=== PATIENT | female | born 1940 | race Caucasian/White ===

== ENCOUNTER → 2019-04-30 10:26 | Outpatient (BNVA) | payer MEDICARE, SELFPAY | PROVIDERS: Visit Provider Nurse Practitioner Family | DX: Z00.00 Encounter for general adult medical examination without abnormal findings (principal); Z13.1 Encounter for screening for diabetes mellitus; E78.5 Hyperlipidemia, unspecified | CPT/HCPCS: 80048; 80061 ==

== ENCOUNTER → 2020-05-05 13:17 | Outpatient (BNVA) | payer MEDICARE, SELFPAY | PROVIDERS: PCP Nurse Practitioner Family; Visit Provider Nurse Practitioner Family | DX: I10 Essential (primary) hypertension (principal); E78.5 Hyperlipidemia, unspecified; Z00.00 Encounter for general adult medical examination without abnormal findings | CPT/HCPCS: 80053; 80061 ==

== ENCOUNTER → 2021-03-15 08:42 | Outpatient (BNVA) | payer MEDICARE, SELFPAY | PROVIDERS: PCP Nurse Practitioner Family; Visit Provider Nurse Practitioner Family | DX: I10 Essential (primary) hypertension (principal) | CPT/HCPCS: 80053 ==

== ENCOUNTER → 2021-04-19 09:29 | Outpatient (BNVA) | payer MEDICARE, SELFPAY | PROVIDERS: PCP Nurse Practitioner Family; Visit Provider Nurse Practitioner Family | DX: R53.1 Weakness (principal); R41.82 Altered mental status, unspecified; I10 Essential (primary) hypertension; F03.90 Unspecified dementia, unspecified severity, without behavioral disturbance, psychotic disturbance, mood disturbance, and anxiety | CPT/HCPCS: 80048; 85025 ==

== ENCOUNTER 2021-05-05 13:29 | Outpatient (CLI) | payer MEDICARE, SELFPAY ==
--- NOTE | 2021-05-05 13:40 | CT_ITS ---
WS: [id number] CT head wo/w con [id number] REASON FOR EXAM: R41.82 - Altered mental status, unspecified IV CONTRAST ADMINISTERED: 95 mL of Omnipaque 300 TOTAL EXAM DLP: 2325.[address] scans at [facility] use at least one of these dose optimization techniques: automat ed exposure control; mA and/or kV adjustment per patient size (includes targeted exams where dose is matched to clinical indication); or iterative reconstruction. FINDINGS: No midline shift or other significant mass effect. No findings of intra-axial or extra-axial hemorrhage. CSF spaces are of normal volume and configuration. Small focus of low attenuation in the right caudate nucleus. This is felt to represent an old infarct . There is inhomogeneous low-attenuation in the white matter compatible with small vessel chronic isc hemic demyelination. No other focal brain parenchymal abnormality identified. No abnormal contrast en hancement. The base of the skull is intact. There vertebral, carotid, and basilar arteries base the brain appear unremarkable. 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 No acute intracranial abnormality.
[2021-05-05] MEDS: iohexol 300 mg/mL 100 mL Btl IV (14:08)
== END 2021-05-05 13:30 | disposition home or self-care (01) ==
PROVIDERS: PCP Nurse Practitioner Family; Visit Provider Nurse Practitioner Family
DX: R41.82 Altered mental status, unspecified (principal)
CPT/HCPCS: 70470

== ENCOUNTER 2021-07-09 09:22 | Emergency (ER) | payer MEDICARE, SELFPAY ==
--- NOTE | 2021-07-09 09:26 | XRR_ITS ---
PROCEDURE INFORMATION: Exam: XR Chest Exam date and time: 07/09/2021 9:29 AM Age: 81 years old Clinical indication: Other: Weakness; Additional info: [place] TECHNIQUE: Imaging protocol: XR of the chest. Views: 1 view. Total images: 1 COMPARISON: No relevant prior studies available. FINDINGS: Lungs: Benign granulomatous disease of the lung is noted. Pleural spaces: Unremarkable. No pleural effusion. No pneumothorax. Heart/Mediastinum: Unremarkable. No cardiomegaly. Vasculature: Atherosclerosis is evident. Bones/joints: Unremarkable. XR/XR chest 1V portable [id number] IMPRESSION: No acute cardiopulmonary process.
--- NOTE | 2021-07-09 09:26 | CTR_ITS ---
PROCEDURE INFORMATION: Exam: CT Head Without Contrast Exam date and time: 07/09/2021 9:38 AM Age: 81 years old Clinical indication: Altered mental status/memory loss; Additional info: AMS TECHNIQUE: Imaging protocol: Computed tomography of the head without contrast. Total images: 1 Radiation optimization: All CT scans at this facility use at least one of these dose optimization techniques: automated exposure control; mA and/or kV adjustment per patient size (includes targeted exams where dose is matched to clinical indication); or iterative reconstruction. COMPARISON: CT head wo/w con [id number] 05/05/2021 2:04 PM RADIATION DOSE METRICS: Total DLP (mGy-cm): 778.52 FINDINGS: Brain: Global brain atrophy and chronic white matter ischemic changes are present. Chronic lacunar infarctions in the basal ganglia. Cerebral ventricles: Ventricles are appropriate in size for degree of atrophy. Paranasal sinuses: Visualized sinuses are unremarkable. No fluid levels. Mastoid air cells: Visualized mastoid air cells are well aerated. Orbital cavities: Senescent scleral calcification noted bilateral. Prior bilateral lens replacements noted. Bones/joints: Temporomandibular joint degeneration. Soft tissues: Unremarkable. CT/CT head wo con* [id number] IMPRESSION: No acute intracranial abnormality.
--- NOTE | 2021-07-09 09:27 | ECG_ITS ---
[facility] Test Date: 2021-07-09 Pat Name: Krissy Hager Department: Room: Gender: Female Assistant Mechanic: : 1940 Requested By: Remington Collado Order Number: [id number] Sherman MD: Wilber Putnam M.D. Measurements Intervals [place] Rate: 78 P: 15 MN: 181 QRS: 12 QRSD: 95 T: -11 QT: 361 QTc: 413 Interpretive Statements SINUS RHYTHM POSSIBLE ANTERIOR MYOCARDIAL INFARCTION , OF INDETERMINATE AGE [30 ms Q WAVE IN V3/V4, OR R < 0.2 mV IN V4] No previous ECG available for comparison Electronically Signed On 07-09-2021 12:59:12 CDT by Wilber Putanm M.D. [email or web address]
--- NOTE | 2021-07-09 09:29 | W.ED.AMS ---
HPI - Altered Mental Status General: Chief Complaint: Altered Mental Status Stated Complaint: AMS Time Seen by Provider: 07/09/21 09:23 Source: EMS Mode of arrival: EMS Limitations: no limitations History of Present Illness: 81-year-old female who has a history of a CVA this year she has [facility]. Per [facility] staff she went to bed normal last night at 9 PM and since being awake this morning she has been altered not following any commands not able to walk. Here she is able to follow 1 command and show me 2 fingers was not able to get her to answer any questions she will not move her extremity was able to lift her left hand slightly to show me the 2 fingers EMS states they could not get her to respond at all. Review of Systems General: Reports: ROS unobtainable due to mental status [facility] ED PFSH: Medical History BMI 21.0-21.9, adult Chronic GERD History of cervical cancer History of kidney stones History of migraine Hypertension Surgical History History of hysterectomy 1998 History of tubal ligation Family History Father Family history of heart attack Mother Hypertension Sister Cancer Social History Smoking and tobacco status: never smoked Second hand smoke exposure: No Smoking risk assessment/counseling performed?: No Alcohol intake: never Desire information about alcohol rehabilitation?: No Counseling given: No Desire information about substance/drug rehabilitation?: No Counseling given: No Adopted: No Caregiver/support person: No Lives independently: Yes Household members: none Housing: House Number of children: 2 service: No Current occupational status: retired History of recent travel: No Sexually active: No Current gender identity: Female Physical Exam Const: COMMON NORMALS: negative for patient oriented x3 EXAM LIMITATIONS: altered mental status GENERAL APPEARANCE: lethargic, ill appearing and frail appearing ORIENTATION/CONSCIOUSNESS: Yes lethargic HENMT: COMMON NORMALS: normocephalic and atraumatic HEAD & SCALP: normocephalic and atraumatic Eye: COMMON NORMALS: Equal, round and reactive pupils present PUPIL: Yes Equal, round and reactive pupils present Neck/C-Spine: COMMON NORMALS: full ROM and supple Chest: COMMONS NORMALS: normal inspection of the chest and normal palpation of entire chest wall Resp: COMMON NORMALS: normal respiratory effort, No retractions, No use of accessory muscles and clear to auscultation bilaterally AUSCULTATION: clear to auscultation bilaterally Cardio: COMMON NORMALS: regular rate and regular rhythm RATE: regular rate RHYTHM: regular rhythm GI: COMMON NORMALS: Normal to inspection, nondistended, normoactive bowel sounds present, Soft to palpation and non-tender PALPATION: Yes Soft to palpation : COMMON NORMALS: Yes no CVA tenderness BLADDER/KIDNEY EXAM: Yes no CVA tenderness Back/Pelvis: COMMON NORMALS: no CVA tenderness Extremity: COMMON NORMALS: normal to inspection Neuro: COMMON NORMALS: negative for patient oriented x3 SENSORIUM/ORIENTATION: Yes lethargic Psych: COMMON NORMALS: negative for mental status grossly normal Skin: COMMON NORMALS: no rashes or lesions noted GENERAL SKIN EXAM: no rashes or lesions noted Course Vital Signs: Vital signs: Vital Signs Temperature 96.1 F L 07/09/21 09:34 Pulse Rate 83 07/09/21 09:34 Respiratory Rate 16 07/09/21 09:34 Blood Pressure 114/77 07/09/21 09:34 Pulse Oximetry 98 07/09/21 09:34 MDM - Altered Mental Status Medical Decision Making Patient presents with an episode of altered mental status here she currently she is now awake and alert and at her baseline answering all my questions appropriately head CT blood works all normal she feels improved would like to go back to [facility] I feel she is stable for discharge back to the [facility] she is to follow-up with PCP and return if worsening. Lab Data : 07/09/21 10:17 07/09/21 10:17 Radiology Impressions Chest X-Ray 07/09/21 09:26 IMPRESSION: No acute cardiopulmonary process. Head CT 07/09/21 09:26 IMPRESSION: No acute intracranial abnormality. Laboratory Results WBC 5.4 10^3/uL (4.0-10.0) 07/09/21 10:17 RBC 4.15 10^6/uL (4.1-5.3) 07/09/21 10:17 Hgb 12.7 g/dL (11.5-15.3) 07/09/21 10:17 Hct 37.7 % (37.0-47.0) 07/09/21 10:17 MCV 90.8 fl (81-99) 07/09/21 10:17 MCH 30.6 pg (28.0-34.0) 07/09/21 10:17 MCHC 33.7 g/dL (30.0-36.0) 07/09/21 10:17 RDW 13.4 % (12.1-15.1) 07/09/21 10:17 Plt Count 170 10^3/cmm (130-400) 07/09/21 10:17 MPV 11.7 fL (7.4-10.4) H 07/09/21 10:17 Neut % (Auto) 70.7 % 07/09/21 10:17 Lymph % (Auto) 20.4 % 07/09/21 10:17 [place] % (Auto) 7.5 % 07/09/21 10:17 Eos % (Auto) 0.4 % 07/09/21 10:17 Baso % (Auto) 0.6 % 07/09/21 10:17 Neut # (Auto) 3.79 10^3/uL (1.8-7.7) 07/09/21 10:17 Lymph # (Auto) 1.1 10^3/uL (0.8-4.8) 07/09/21 10:17 [place] # (Auto) 0.4 10^3/uL (0.2-0.9) 07/09/21 10:17 Eos # (Auto) 0.0 10^3/uL (0.0-0.8) 07/09/21 10:17 Baso # (Auto) 0.0 10^3/uL (0.0-0.1) 07/09/21 10:17 Nucleated RBC % (auto) 0 % 07/09/21 10:17 Nucleated RBCs # 0.0 /100WBC 07/09/21 10:17 PT 13.10 SECONDS (12.1-14.9) 07/09/21 10:17 INR 0.96 (0.8-1.2) 07/09/21 10:17 Specimen Type Arterial 07/09/21 09:43 Sample Site Brachial, left 07/09/21 09:43 ABG pH 7.47 (7.35-7.45) H 07/09/21 09:43 ABG pCO2 41.3 mmHg (35-45) 07/09/21 09:43 ABG pO2 114.0 mmHg (80.0-100.0) H 07/09/21 09:43 ABG HCO3 29.7 mmol/L (22-26) H 07/09/21 09:43 ABG Base Excess 5.5 mmol/L (-2.0-2.0) H 07/09/21 09:43 Lloyd Test Pos 07/09/21 09:43 Hematocrit 40.8 % (37-47) 07/09/21 09:43 O2 Delivery Device Nc 07/09/21 09:43 O2 Liters/Min 2.0 % 07/09/21 09:43 FiO2 28.0 % 07/09/21 09:43 Exchange Specialist ID Cak 07/09/21 09:43 Sodium 139 mmol/L (136-145) 07/09/21 10:17 Potassium 3.3 mmol/L (3.5-5.1) L 07/09/21 10:17 Chloride 101 mmol/L (98-107) 07/09/21 10:17 Carbon Dioxide 26 mmol/L (22-29) 07/09/21 10:17 Anion Gap 15.3 (5-19) 07/09/21 10:17 BUN 21 mg/dL (8-23) 07/09/21 10:17 Creatinine 0.6 mg/dL (0.5-0.9) 07/09/21 10:17 GFR Calculation Not Reportable 07/09/21 10:17 Glucose 86 mg/dL (65-115) 07/09/21 10:17 Calculated Osmolality 290 mOsm/kg (285-295) 07/09/21 10:17 Calcium 9.3 mg/dL (8.5-10.5) 07/09/21 10:17 Total Bilirubin 1.0 mg/dL (0.15-1.2) 07/09/21 10:17 AST 13 U/L (0-32) 07/09/21 10:17 ALT 8 U/L (0-33) 07/09/21 10:17 Alkaline Phosphatase 77 IU/L (35-105) 07/09/21 10:17 Total Protein 6.1 g/dL (6.6-8.7) L 07/09/21 10:17 Albumin 3.8 g/dL (3.5-5.2) 07/09/21 10:17 Globulin 2.3 g/dL (1.3-4.6) 07/09/21 10:17 TSH 0.20 uIU/mL (0.27-4.20) L 07/09/21 10:17 Urine Color Yellow (Yellow) 07/09/21 10:06 Urine Appearance Clear (CLEAR) 07/09/21 10:06 Urine pH 6 (5-7) 07/09/21 10:06 Ur Specific [place] 1.030 (1.005-1.030) 07/09/21 10:06 Urine Protein Neg (Negative) 07/09/21 10:06 Urine Glucose (UA) Norm (Normal) 07/09/21 10:06 Urine Ketones Negative (Negative) 07/09/21 10:06 Urine Blood Neg (Negative) 07/09/21 10:06 Urine Nitrate Negative (Negative) 07/09/21 10:06 Urine Bilirubin Neg (Negative) 07/09/21 10:06 Urine Urobilinogen Norm mg/dL (Negative) 07/09/21 10:06 Ur Leukocyte Esterase Negative (Negative) 07/09/21 10:06 EKG Data EKG 1: I personally reviewed and interpreted this EKG as follows: EKG interpretation date: 07/09/21 EKG interpretation time: 09:55 Interpretation: nsr hr [address] or t wave abnormalities qrs 95 qtc 394 Discharge Plan Discharge Patient Disposition: Home Clinical Impression: Altered mental status Qualifiers: Altered mental status type: unspecified Qualified Code(s): R41.82 - Altered mental status, unspecified Condition: Stable Prescriptions: No Action aspirin 81 mg tablet,delayed release (DR/EC) 81 mg PO DAILY 0RF metoprolol tartrate 25 mg tablet 50 mg PO DAILY 0RF amlodipine 10 mg tablet 10 mg PO DAILY 0RF docusate sodium [Colace] 100 mg capsule 100 mg PO DAILY 0RF polyethylene glycol 3350 [Miralax] 17 gram/dose powder 17 g PO DAILY PRN (Reason: constipation) 0RF atorvastatin 40 mg tablet 40 mg PO .at hs 0RF duloxetine [Cymbalta] 30 mg capsule,delayed release(DR/EC) 30 mg PO DAILY Qty: 30 0RF omega 9-xso-fjo-fish oil [Fish Oil] 1,000 mg (120 mg-180 mg) capsule 1 cap PO BID 0RF vitamin E (dl, acetate) 180 mg (400 unit) capsule 400 unit PO DAILY 0RF cholecalciferol (vitamin D3) 25 mcg (1,000 unit) capsule 25 mcg PO DAILY 0RF ferrous sulfate [FeroSul] 325 mg (65 mg iron) tablet 325 mg PO DAILY 0RF potassium chloride 10 mEq capsule, extended release 10 meq PO DAILY Qty: 90 1RF Discharge Orders: Discharge ED (Routine); Ordered 07/09/21 Ordered By: Remington Collado Referrals: Sterling Madrid MD [Primary Care Provider] - 1-3 days Discharge Diet: Advance as tolerated Discharge Activity: Resume usual activity Patient Instructions: Altered Mental Status (ED) Coding Level of Care Code ED [employer] Consultant for Wilmer Fwd Exam Comprehensive
[2021-07-09 09:34] VITALS: BP 114/77; PULSE 83; RESP 16; TEMP 35.6; O2SAT 98; BMI 18.3
[2021-07-09 09:54] LABS: ABG PCO2 41.3 mmHg (35-45); ABG PH Result 7.47 (7.35-7.45); Arterial Blood Gas Hematocrit 40.8 % (37-47); Base Excess ABG 5.5 mmol/L (-2.0-2.0); Blood Gas Allen Test Pos; Blood Gas Operator Identificat CAK; Blood Gas Sample Site Brachial, left; Blood Gas Sample Type Arterial; HCO3 ABG 29.7 mmol/L (22-26); Oxygen Device NC
--- NOTE | 2021-07-09 10:26 | PC.NURSE ---
IN AND OUT CATH PERFORMED ASSISTED BY Kibin. PT PLACED ON CONTINUOUS SPO2, NIBP, AND CM.
[2021-07-09 10:34] LABS: Basophils % 0.6 %; Eosinophils % 0.4 %; Hematocrit 37.7 % (37.0-47.0); Hemoglobin 12.7 g/dL (11.5-15.3); Lymphocytes # 1.1 10^3/uL (0.8-4.8); Lymphocytes % 20.4 %; Mean Corpuscular HGB Conc 33.7 g/dL (30.0-36.0); Mean Corpuscular Hemoglobin 30.6 pg (28.0-34.0); Mean Corpuscular Volume 90.8 fl (81-99); Mean Platelet Volume 11.7 fL (7.4-10.4); Monocytes # 0.4 10^3/uL (0.2-0.9); Monocytes % 7.5 %; Neutrophils # 3.79 10^3/uL (1.8-7.7); Neutrophils % 70.7 %; Nucleated Red Blood Cells % 0 %; Platelet Count 170 10^3/cmm (130-400); Red Blood Count 4.15 10^6/uL (4.1-5.3); Red Cell Distribution Width 13.4 % (12.1-15.1); White Blood Count 5.4 10^3/uL (4.0-10.0)
[2021-07-09 10:39] LABS: Add Urine Microscopic? NO; Charge for UA Resulting for Rev
[2021-07-09 10:41] LABS: INR 0.96 (0.8-1.2)
[2021-07-09 10:49] LABS: Bilirubin Urine Neg (Negative); Blood Urine Neg (Negative); Glucose Urine UA Norm (Normal); Ketones Urine Negative (Negative); Leukocyte Esterase Urine Negative (Negative); Nitrate Urine Negative (Negative); Protein Urine Neg (Negative); Urine Appearance Clear (CLEAR); Urine Color Yellow (Yellow); Urobilinogen Urine Norm (Negative); pH Urine 6 (5-7)
[2021-07-09 10:58] LABS: Alanine Aminotransferase 8 U/L (0-33); Albumin Level 3.8 g/dL (3.5-5.2); Alkaline Phosphatase 77 IU/L (35-105); Anion Gap 15.3 (5-19); Aspartate Amino Transferase 13 U/L (0-32); Blood Urea Nitrogen 21 mg/dL (8-23); Calcium 9.3 mg/dL (8.5-10.5); Carbon Dioxide 26 mmol/L (22-29); Chloride 101 mmol/L (98-107); Globulin 2.3 g/dL (1.3-4.6); Glucose 86 mg/dL (65-115); Osmolality Calculated 290 mOsm/kg (285-295); Potassium 3.3 mmol/L (3.5-5.1); Sodium 139 mmol/L (136-145); Total Protein 6.1 g/dL (6.6-8.7)
--- NOTE | 2021-07-09 11:14 | PC.NURSE ---
REPORT GIVEN TO CARMINA CLARK.
== END 2021-07-09 13:48 | disposition home or self-care (01) ==
PROVIDERS: Emergency Provider Emergency Medicine; PCP Internal Medicine
DX: R41.82 Altered mental status, unspecified (principal); I10 Essential (primary) hypertension; K21.9 Gastro-esophageal reflux disease without esophagitis; Z79.82 Long term (current) use of aspirin
CPT/HCPCS: 36600; 70450; 71045; 80053; 81003; 82803; 84443; 85025; 85610; 93005; 99284

== ENCOUNTER 2021-07-18 09:12 | Emergency (ER) | payer MEDICARE, SELFPAY ==
[2021-07-18 09:14] VITALS: BP 135/74; PULSE 90; RESP 14; TEMP 36.7; O2SAT 97; BMI 22.0
--- NOTE | 2021-07-18 09:25 | XRR_ITS ---
PROCEDURE INFORMATION: Exam: XR Chest Exam date and time: 07/18/2021 9:33 AM Age: 81 years old Clinical indication: Other: Unresponsive; Additional info: AMS TECHNIQUE: Imaging protocol: XR of the chest. Views: 1 view. COMPARISON: CR (CHEST, ) 07/09/2021 9:29 AM FINDINGS: Lungs: There is no consolidation. Pleural spaces: There is no pleural effusion or pneumothorax. Heart/Mediastinum: There is mild enlargement of the cardiac silhouette. Bones/joints: Bones are unremarkable. XR/XR chest 1V portable [id number] IMPRESSION: No acute findings.
--- NOTE | 2021-07-18 09:25 | CTR_ITS ---
PROCEDURE INFORMATION: Exam: CT Head Without Contrast Exam date and time: 07/18/2021 9:39 AM Age: 81 years old Clinical indication: Altered mental status/memory loss; Confusion or disorientation; Patient HX: Patient arrives from [facility] for unresponsiveness. Patient non verbal and leaning to the right. ; Additional info: AMS TECHNIQUE: Imaging protocol: Computed tomography of the head without contrast. Radiation optimization: All CT scans at this facility use at least one of these dose optimization techniques: automated exposure control; mA and/or kV adjustment per patient size (includes targeted exams where dose is matched to clinical indication); or iterative reconstruction. COMPARISON: CT head wo con* [id number] 07/09/2021 9:38 AM RADIATION DOSE METRICS: Total DLP (mGy-cm): 1007.4 FINDINGS: Brain: There is diffuse cerebral atrophy and chronic microvascular white matter disease. There are focal hypodensities in the bilateral basal ganglia compatible with old lacunar infarcts. There is no acute intracranial hemorrhage. Cerebral ventricles: There is mild ex vacuo dilation of the lateral ventricles. The basal cisterns are unremarkable. Paranasal sinuses: The paranasal sinuses are clear. Mastoid air cells: The mastoid air cells are clear. Bones/joints: The calvarium is intact. Soft tissues: The visible extracranial soft tissues are unremarkable. CT/CT head wo con* [id number] IMPRESSION: 1. No acute intracranial abnormality. 2. 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
--- NOTE | 2021-07-18 09:34 | ED_ITS ---
HPI - Altered Mental Status General: Chief Complaint: Altered Mental Status Stated Complaint: UNRESPONSIVE Time Seen by Provider: 07/18/21 09:18 History of Present Illness: [facility] due to altered mental status. Per the [facility] the patient not responding to them this morning. Apparently the patient had a similar episode about a week ago and was brought to the emergency department and had a negative work-up at that time. She does have a history of a previous stroke. Shortly after arrival here the patient's sister arrived and is soon as her sister into the room the patient talks to her. She would not talk to us previously. Review of Systems General: Reports: Other (Unable to obtain review of systems due to mental status) Const: Denies: fever(s) or body aches Eyes: Denies: change in vision or blurry vision ENMT: Denies: throat pain or odynophagia Card: Denies: chest pain or palpitations Resp: Denies: dyspnea or productive cough GI: Denies: abdominal pain, nausea or vomiting : Denies: flank pain or dysuria Musc: Denies: neck pain or back pain Skin/Breast: Denies: rash or pruritus Neuro: Reports: numbness in extremities and weakness in extremities; Denies: headache(s) Psych: Denies: anxiety or change in appetite Endo: Denies: polyuria or excessive sweating [facility] ED PFSH: Medical History BMI 21.0-21.9, adult Chronic GERD History of cervical cancer History of kidney stones History of migraine Hypertension Surgical History History of hysterectomy 1998 History of tubal ligation Family History Father Family history of heart attack Mother Hypertension Sister Cancer Social History Smoking and tobacco status: never smoked Second hand smoke exposure: No Smoking risk assessment/counseling performed?: No Alcohol intake: never Desire information about alcohol rehabilitation?: No Counseling given: No Desire information about substance/drug rehabilitation?: No Counseling given: No Adopted: No Caregiver/support person: No Lives independently: Yes Household members: none Housing: House Number of children: 2 service: No Current occupational status: retired History of recent travel: No Sexually active: No Current gender identity: Female Physical Exam Const: COMMON NORMALS: no acute distress OTHER: Cachectic HENMT: COMMON NORMALS: normocephalic and atraumatic HEAD & SCALP: normocephalic and atraumatic Eye: COMMON NORMALS: Equal, round and reactive pupils present and EOMs intact bilaterally PUPIL: Yes Equal, round and reactive pupils present Resp: COMMON NORMALS: normal respiratory effort, No retractions and No use of accessory muscles Cardio: COMMON NORMALS: regular rate and regular rhythm RATE: regular rate RHYTHM: regular rhythm GI: COMMON NORMALS: Normal to inspection, nondistended, normoactive bowel sounds present, Soft to palpation and non-tender PALPATION: Yes Soft to palpation Back/Pelvis: COMMON NORMALS: thoracic and lumbar spine normal to inspection and no thoracic nor lumbar tenderness Extremity: COMMON NORMALS: normal to inspection OTHER: No obvious deformity Skin: COMMON NORMALS: no rashes or lesions noted and no wounds GENERAL SKIN EXAM: no rashes or lesions noted Course Vital Signs: Vital signs: Vital Signs Temperature 98.1 F 07/18/21 09:38 Pulse Rate 103 H 07/18/21 11:10 Respiratory Rate 16 07/18/21 11:10 Blood Pressure 125/79 07/18/21 11:10 Pulse Oximetry 96 07/18/21 11:10 [facility] - Altered Mental Status Medical Decision Making Patient is brought in by EMS from [facility] due to altered mental status. Per the [facility] the patient not responding to them this morning. Apparently the patient had a similar episode about a week ago and was brought to the emergency department and had a negative work-up at that time. She does have a history of a previous stroke. Shortly after arrival here the patient's sister arrived and is soon as her sister into the room the patient talks to her. She would not talk to us previously. On physical exam she appears to be tired. Will check labs, CT, give IV fluids, and reassess. On reassessment I talked to the patient and her sister about the test results. [facility] to [facility] at this time with precautions to return for worsening or changing symptoms. Lab Data : 07/18/21 10:30 07/18/21 10:30 Radiology Impressions Chest X-Ray 07/18/21 09:25 IMPRESSION: No acute findings. Head CT 07/18/21 09:25 IMPRESSION: 1. No acute intracranial abnormality. 2. 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 Laboratory Results WBC 7.9 10^3/uL (4.0-10.0) 07/18/21 10:30 RBC 4.36 10^6/uL (4.1-5.3) 07/18/21 10:30 Hgb 13.0 g/dL (11.5-15.3) 07/18/21 10:30 Hct 39.3 % (37.0-47.0) 07/18/21 10:30 MCV 90.1 fl (81-99) 07/18/21 10:30 MCH 29.8 pg (28.0-34.0) 07/18/21 10:30 MCHC 33.1 g/dL (30.0-36.0) 07/18/21 10:30 RDW 13.3 % (12.1-15.1) 07/18/21 10:30 Plt Count 190 10^3/cmm (130-400) 07/18/21 10:30 MPV 11.5 fL (7.4-10.4) H 07/18/21 10:30 Neut % (Auto) 73.4 % 07/18/21 10:30 Lymph % (Auto) 14.7 % 07/18/21 10:30 [place] % (Auto) 10.8 % 07/18/21 10:30 Eos % (Auto) 0.1 % 07/18/21 10:30 Baso % (Auto) 0.6 % 07/18/21 10:30 Neut # (Auto) 5.79 10^3/uL (1.8-7.7) 07/18/21 10:30 Lymph # (Auto) 1.2 10^3/uL (0.8-4.8) 07/18/21 10:30 [place] # (Auto) 0.9 10^3/uL (0.2-0.9) 07/18/21 10:30 Eos # (Auto) 0.0 10^3/uL (0.0-0.8) 07/18/21 10:30 Baso # (Auto) 0.1 10^3/uL (0.0-0.1) 07/18/21 10:30 Nucleated RBC % (auto) 0 % 07/18/21 10:30 Nucleated RBCs # 0.0 /100WBC 07/18/21 10:30 Specimen Type Arterial 07/18/21 09:43 Sample Site Brachial, right 07/18/21 09:43 ABG pH 7.48 (7.35-7.45) H 07/18/21 09:43 ABG pCO2 40.5 mmHg (35-45) 07/18/21 09:43 ABG pO2 75.6 mmHg (80.0-100.0) L 07/18/21 09:43 ABG HCO3 30.4 mmol/L (22-26) H 07/18/21 09:43 ABG Base Excess 6.3 mmol/L (-2.0-2.0) H 07/18/21 09:43 Lloyd Test Pos 07/18/21 09:43 Hematocrit 41.2 % (37-47) 07/18/21 09:43 O2 Delivery Device Room air 07/18/21 09:43 FiO2 21.0 % 07/18/21 09:43 Babcock Tester ID Bd 07/18/21 09:43 Sodium 140 mmol/L (136-145) 07/18/21 10:30 Potassium 3.5 mmol/L (3.5-5.1) 07/18/21 10:30 Chloride 101 mmol/L (98-107) 07/18/21 10:30 Carbon Dioxide 28 mmol/L (22-29) 07/18/21 10:30 Anion Gap 14.5 (5-19) 07/18/21 10:30 BUN 19 mg/dL (8-23) 07/18/21 10:30 Creatinine 0.8 mg/dL (0.5-0.9) 07/18/21 10:30 GFR Calculation Not Reportable 07/18/21 10:30 Glucose 101 mg/dL (65-115) 07/18/21 10:30 POC Glucose 105 mg/dL (70-110) 07/18/21 09:47 Calculated Osmolality 292 mOsm/kg (285-295) 07/18/21 10:30 Lactate 1.1 mmol/L (0.5-2.2) 07/18/21 10:30 Calcium 9.5 mg/dL (8.5-10.5) 07/18/21 10:30 Total Bilirubin 0.9 mg/dL (0.15-1.2) 07/18/21 10:30 AST 18 U/L (0-32) 07/18/21 10:30 ALT 11 U/L (0-33) 07/18/21 10:30 Alkaline Phosphatase 78 IU/L (35-105) 07/18/21 10:30 Total Protein 6.1 g/dL (6.6-8.7) L 07/18/21 10:30 Albumin 3.9 g/dL (3.5-5.2) 07/18/21 10:30 Globulin 2.2 g/dL (1.3-4.6) 07/18/21 10:30 Lipase 18 U/L (13-60) 07/18/21 10:30 Urine Color Yellow (Yellow) 07/18/21 10:01 Urine Appearance Sl hazy (CLEAR) 07/18/21 10:01 Urine pH 8 (5-7) H 07/18/21 10:01 Ur Specific [place] 1.010 (1.005-1.030) 07/18/21 10:01 Urine Protein Neg (Negative) 07/18/21 10:01 Urine Glucose (UA) Norm (Normal) 07/18/21 10:01 Urine Ketones Negative (Negative) 07/18/21 10:01 Urine Blood Neg (Negative) 07/18/21 10:01 Urine Nitrate Negative (Negative) 07/18/21 10:01 Urine Bilirubin Neg (Negative) 07/18/21 10:01 Prot Sulfosalicylic Acd Negative (Negative) 07/18/21 10:01 Urine Urobilinogen 1 mg/dL (Negative) H 07/18/21 10:01 Ur Leukocyte Esterase 1+ (Negative) H 07/18/21 10:01 Urine RBC 0-4 /hpf (0-2) H 07/18/21 10:01 Urine WBC 5-10 /hpf (0-5) H 07/18/21 10:01 Ur Squamous Epith Cells Rare /hpf (0-5) 07/18/21 10:01 Amorphous Sediment 2+ /hpf 07/18/21 10:01 Urine Bacteria 1+ /hpf (NONE) H 07/18/21 10:01 Coarse Granular Casts 0-4 /lpf H 07/18/21 10:01 Urine Mucus Trace /hpf 07/18/21 10:01 Urine Opiates Screen Negative ng/mL (Negative) 07/18/21 10:01 Ur Barbiturates Screen Negative ng/mL (Negative) 07/18/21 10:01 Ur Phencyclidine Scrn Negative ng/mL (Negative) 07/18/21 10:01 Ur Amphetamines Screen Negative ng/mL (Negative) 07/18/21 10:01 U Benzodiazepines Scrn Negative ng/mL (Negative) 07/18/21 10:01 Urine Cocaine Screen Negative ng/mL (Negative) 07/18/21 10:01 U Marijuana (THC) Screen Negative ng/mL (Negative) 07/18/21 10:01 Ethyl Alcohol < 10 mg/dL (0-10) 07/18/21 10:30 Discharge Plan Discharge Patient Disposition: Home Clinical Impression: Encounter for medical screening examination Condition: Stable Prescriptions: No Action aspirin 81 mg tablet,delayed release (DR/EC) 81 mg PO DAILY@08 0RF metoprolol tartrate 25 mg tablet 50 mg PO DAILY@08 0RF amlodipine 10 mg tablet 10 mg PO DAILY@08 0RF docusate sodium [Colace] 100 mg capsule 100 mg PO DAILY@08 0RF polyethylene glycol 3350 [Miralax] 17 gram/dose powder 17 g PO DAILY PRN (Reason: constipation) 0RF atorvastatin 40 mg tablet 40 mg PO BEDTIME 0RF omega 2-blo-boh-fish oil [Fish Oil] 1,000 mg (120 mg-180 mg) capsule 1 cap PO DAILY@08 0RF cholecalciferol (vitamin D3) 25 mcg (1,000 unit) capsule 25 mcg PO DAILY@08 0RF ferrous sulfate [FeroSul] 325 mg (65 mg iron) tablet 325 mg PO DAILY@08 0RF vitamin E 400 unit Capsule 400 unit PO DAILY@08 0RF Tylenol 325 mg Tablet 650 mg PO Q6H PRN (Reason: Pain) 0RF ketoconazole 2 % shampoo See Rx Instructions .ROUTE .COMPLEX 0RF Rx Instructions: apply to scalp three times a week until healed potassium chloride 10 mEq capsule, extended release 10 meq PO DAILY@08 0RF duloxetine [Cymbalta] 30 mg capsule,delayed release(DR/EC) 30 mg PO DAILY@08 0RF Discharge Orders: Discharge ED (Routine); Ordered 07/18/21 Ordered By: Norris Fox Referrals: Sterling Madrid MD [Primary Care Provider] - Coding Level of Care Code ED Control Panel Operator Crude Unit for Chg Fwd Exam Comprehensive
[2021-07-18 09:38] VITALS: BP 135/74; PULSE 90; RESP 14; TEMP 36.7; O2SAT 97
[2021-07-18] MEDS: sodium chloride 0.9% 500 ML IV (09:50)
[2021-07-18 09:52] LABS: Glucose Point of Care 105 mg/dL (70-110)
[2021-07-18 09:53] LABS: ABG PCO2 40.5 mmHg (35-45); ABG PH Result 7.48 (7.35-7.45); Arterial Blood Gas Hematocrit 41.2 % (37-47); Base Excess ABG 6.3 mmol/L (-2.0-2.0); Blood Gas Allen Test Pos; Blood Gas Operator Identificat BD; Blood Gas Sample Site Brachial, right; Blood Gas Sample Type Arterial; HCO3 ABG 30.4 mmol/L (22-26); Oxygen Device ROOM AIR; PO2 ABG 75.6 mmHg (80.0-100.0)
--- NOTE | 2021-07-18 09:55 | PC.PHAR ---
pt is from [facility]-kenia cummings from [facility] states the pt had no medications today
[2021-07-18 10:02] VITALS: BP 155/89; PULSE 93; RESP 16; O2SAT 97
[2021-07-18 10:18] LABS: Urine Appearance SL Hazy (CLEAR); Urine Color Yellow (Yellow); pH Urine 8 (5-7)
[2021-07-18 10:19] LABS: Add Urine Microscopic? YES; Bilirubin Urine Neg (Negative); Blood Urine Neg (Negative); Glucose Urine UA Norm (Normal); Ketones Urine Negative (Negative); Leukocyte Esterase Urine 1+ (Negative); Nitrate Urine Negative (Negative); Protein Urine Neg (Negative); Sulfosalicylic Acid Urine Negative (Negative); Urobilinogen Urine 1 mg/dL (Negative)
[2021-07-18 10:20] LABS: Amphetamines Screen Urine Negative (Negative); Bacteria Urine 1+ /hpf; Barbiturates Screen Urine Negative (Negative); Benzodiazepines Screen Urine Negative (Negative); Cocaine Screen Urine Negative (Negative); Opiate Screen Urine Negative (Negative); PCP Screen Urine Negative (Negative); RBC Urine 0-4 /hpf (0-2); Squamous Epithelial Cell Urine RARE /hpf (0-5); THC Screen Urine Negative (Negative)
[2021-07-18 10:21] LABS: Add Urine Culture? No; Amorphous Sediment Urine 2+ /hpf; Coarse Granular Casts Urine 0-4 /lpf; Mucus Urine TRACE /hpf
[2021-07-18 10:35] LABS: Basophils # 0.1 10^3/uL (0.0-0.1); Basophils % 0.6 %; Eosinophils % 0.1 %; Hematocrit 39.3 % (37.0-47.0); Lymphocytes # 1.2 10^3/uL (0.8-4.8); Lymphocytes % 14.7 %; Mean Corpuscular HGB Conc 33.1 g/dL (30.0-36.0); Mean Corpuscular Hemoglobin 29.8 pg (28.0-34.0); Mean Corpuscular Volume 90.1 fl (81-99); Mean Platelet Volume 11.5 fL (7.4-10.4); Monocytes # 0.9 10^3/uL (0.2-0.9); Monocytes % 10.8 %; Neutrophils # 5.79 10^3/uL (1.8-7.7); Neutrophils % 73.4 %; Nucleated Red Blood Cells % 0 %; Platelet Count 190 10^3/cmm (130-400); Red Blood Count 4.36 10^6/uL (4.1-5.3); Red Cell Distribution Width 13.3 % (12.1-15.1); White Blood Count 7.9 10^3/uL (4.0-10.0)
[2021-07-18 10:52] LABS: Lactate (Lactic Acid level) 1.1 mmol/L (0.5-2.2)
[2021-07-18 10:53] LABS: Alanine Aminotransferase 11 U/L (0-33); Albumin Level 3.9 g/dL (3.5-5.2); Alkaline Phosphatase 78 IU/L (35-105); Anion Gap 14.5 (5-19); Aspartate Amino Transferase 18 U/L (0-32); Blood Urea Nitrogen 19 mg/dL (8-23); Calcium 9.5 mg/dL (8.5-10.5); Carbon Dioxide 28 mmol/L (22-29); Chloride 101 mmol/L (98-107); Globulin 2.2 g/dL (1.3-4.6); Glucose 101 mg/dL (65-115); Lipase 18 U/L (13-60); Osmolality Calculated 292 mOsm/kg (285-295); Potassium 3.5 mmol/L (3.5-5.1); Sodium 140 mmol/L (136-145); Total Bilirubin 0.9 mg/dL (0.15-1.2); Total Protein 6.1 g/dL (6.6-8.7)
[2021-07-18 11:02] LABS: Alcohol Level < 10 mg/dL (0-10)
[2021-07-18 11:10] VITALS: BP 125/79; PULSE 103; RESP 16; O2SAT 96
[2021-07-18 13:30] VITALS: BP 158/91; PULSE 100; RESP 16; O2SAT 97
[2021-07-18 14:51] VITALS: BP 158/91; PULSE 100; RESP 16; O2SAT 97
== END 2021-07-18 13:53 | disposition home or self-care (01) ==
PROVIDERS: Emergency Provider Emergency Medicine; PCP Internal Medicine
DX: R41.82 Altered mental status, unspecified (principal); I10 Essential (primary) hypertension; K21.9 Gastro-esophageal reflux disease without esophagitis; Z79.82 Long term (current) use of aspirin
CPT/HCPCS: 36416; 36600; 51701; 70450; 71045; 80053; 80306; 80307; 81001; 82803; 82962; 83605; 83690; 85025; 99283; J7040

== ENCOUNTER → 2021-08-02 12:24 | Outpatient (BNVA) | payer MEDICARE, SELFPAY | PROVIDERS: PCP Internal Medicine; Referring Provider Nurse Practitioner Family; Visit Provider Specialist | DX: G31.83 Neurocognitive disorder with Lewy bodies (principal); F02.80 Dementia in other diseases classified elsewhere, unspecified severity, without behavioral disturbance, psychotic disturbance, mood disturbance, and anxiety; R56.9 Unspecified convulsions; I69.319 Unspecified symptoms and signs involving cognitive functions following cerebral infarction | CPT/HCPCS: 99205 ==

== ENCOUNTER → 2021-08-15 13:08 | Outpatient (BNVA) | payer MEDICARE, SELFPAY | PROVIDERS: PCP Internal Medicine; Referring Provider Specialist; Visit Provider Specialist | DX: R56.9 Unspecified convulsions (principal); I69.319 Unspecified symptoms and signs involving cognitive functions following cerebral infarction; G31.83 Neurocognitive disorder with Lewy bodies | CPT/HCPCS: 95816 ==

== ENCOUNTER 2021-11-18 16:53 | Outpatient (CLI) | payer MEDICARE, SELFPAY ==
[2021-11-18 17:17] LABS: Bilirubin Urine Negative (Negative); Blood Urine Trace-intact (Negative); Glucose Urine UA Negative (Normal); Ketones Urine 1+ (Negative); Leukocyte Esterase Urine 3+ (Negative); Nitrate Urine Positive; Protein Urine 2+ (Negative); Specific Gravity, Urine 1.025 (1.005-1.030); Urine Appearance Cloudy (CLEAR); Urine Color Yellow (Yellow); Urobilinogen Urine 0.2 mg/dL (Negative)
[2021-11-18 17:28] LABS: Add Urine Microscopic? YES
[2021-11-18 17:34] LABS: Add Urine Culture? Yes; Squamous Epithelial Cell Urine 0-4 /hpf (0-5); WBC Urine TOO NUMEROUS TO CNT /hpf (0-5)
== END 2021-11-18 16:54 | disposition home or self-care (01) ==
LOC: LAB 16:57
PROVIDERS: PCP Internal Medicine; Visit Provider Internal Medicine
DX: R41.82 Altered mental status, unspecified (principal)
CPT/HCPCS: 81001; 87077; 87086; 87186

== ENCOUNTER → 2022-01-23 13:29 | Outpatient (BNVA) | payer MEDICARE, SELFPAY | PROVIDERS: PCP Internal Medicine; Visit Provider Specialist | DX: G31.83 Neurocognitive disorder with Lewy bodies (principal); F02.C11 Dementia in other diseases classified elsewhere, severe, with agitation | CPT/HCPCS: 99213 ==

== ENCOUNTER 2022-02-13 17:39 | Outpatient (CLI) | payer MEDICARE, SELFPAY ==
[2022-02-13 19:07] LABS: Add Urine Culture? No; Bacteria Urine TRACE /hpf; Bilirubin Urine Neg (Negative); Blood Urine Neg (Negative); Glucose Urine UA Norm (Normal); Ketones Urine Negative (Negative); Leukocyte Esterase Urine Negative (Negative); Nitrate Urine Negative (Negative); Protein Urine Neg (Negative); Squamous Epithelial Cell Urine 0-4 /hpf (0-5); Urine Appearance Clear (CLEAR); Urine Color Yellow (Yellow); Urobilinogen Urine Norm (Negative); pH Urine 6 (5-7)
== END 2022-02-13 17:40 | disposition home or self-care (01) ==
PROVIDERS: PCP Internal Medicine; Visit Provider Internal Medicine
DX: R41.82 Altered mental status, unspecified (principal)
CPT/HCPCS: 81001

== ENCOUNTER 2022-06-09 18:28 | Outpatient (CLI) | payer MEDICARE, SELFPAY ==
[2022-06-09 20:29] LABS: Hemoglobin 11.6 g/dL (11.5-15.3); Mean Corpuscular HGB Conc 31.4 g/dL (30.0-36.0); Mean Corpuscular Volume 95.6 fl (81-99); Mean Platelet Volume 12.2 fL (7.4-10.4); Platelet Count 167 10^3/cmm (130-400); Red Blood Count 3.87 10^6/uL (4.1-5.3); Red Cell Distribution Width 12.8 % (12.1-15.1); White Blood Count 5.6 10^3/uL (4.0-10.0)
[2022-06-09 21:20] LABS: Absolute Eosinophils 0.1 10^3/cmm (0.0-0.7); Absolute Neutrophil 2.6 10^3/cmm (1.4-6.5); Absolute Segmented Neutrophil 2.6 10/cmm (1.6-7.1); Eosinophils 2 %; Lymphocytes 45 %; Lymphocytes Absolute 2.5 10^3/cmm (1.2-3.4); Monocytes Absolute 0.3 10^3/cmm (0.1-0.6); Platelet Estimate Normal (Normal); Segmented Neutrophils 47 %; Total Cells Counted 100 (0-100)
[2022-06-09 21:23] LABS: Bilirubin Urine Neg (Negative); Blood Urine Neg (Negative); Glucose Urine UA Norm (Normal); Ketones Urine Negative (Negative); Leukocyte Esterase Urine Negative (Negative); Nitrate Urine Negative (Negative); Protein Urine Neg (Negative); Specific Gravity, Urine 1.015 (1.005-1.030); Urine Appearance Clear (CLEAR); Urine Color Yellow (Yellow); Urobilinogen Urine Norm (Negative); pH Urine 7 (5-7)
[2022-06-09 21:24] LABS: Bacteria Urine 2+ /hpf; RBC Urine 0-4 /hpf (0-2); Squamous Epithelial Cell Urine 25-40 /hpf (0-5); Transitional Epi Cells Urine 0-4 /hpf; WBC Urine 0-4 /hpf (0-5)
== END 2022-06-09 18:29 | disposition home or self-care (01) ==
LOC: LAB 18:30
PROVIDERS: PCP Internal Medicine; Visit Provider Internal Medicine
DX: Z01.89 Encounter for other specified special examinations (principal)
CPT/HCPCS: 81001; 85007; 85027

== ENCOUNTER → 2022-07-12 10:32 | Outpatient (BNVA) | payer MEDICARE, SELFPAY | PROVIDERS: PCP Internal Medicine; Visit Provider Specialist | DX: G31.83 Neurocognitive disorder with Lewy bodies (principal) | CPT/HCPCS: 99213 ==